=== PATIENT | female | born 1995 | race Caucasian/White ===

== ENCOUNTER 2017-11-08 05:53 | Emergency (ER) | payer MEDICAID, OTHER ==
[~2017-11-08] VITALS: Ht 167.6 cm; Wt 61.4 kg
[2017-11-08] MEDS ORDERED: ondansetron/PF 4mg/2ml inj IV ONE (06:10)
[2017-11-08] MEDS ORDERED: normal saline 1000ML IV soln IVB ONE (06:10)
[2017-11-08 07:28] VITALS: BP 96/62
== END 2017-11-08 07:45 | disposition home or self-care (01) ==
LOC: ER 05:54
DX: F10.920 Alcohol use, unspecified with intoxication, uncomplicated (principal); R11.2 Nausea with vomiting, unspecified
CPT/HCPCS: 96361; 96374; 99284; J2405; J7030